=== PATIENT | female | born 1960 ===

== ENCOUNTER 2024-04-19 13:47 | Emergency (ER) | payer OTHER, SELFPAY ==
[2024-04-19 13:49] VITALS: BP 183/86; PULSE 59; RESP 16; TEMP 36.4; O2SAT 100; BMI 28.3
--- NOTE | 2024-04-19 14:30 | PC.NURSE ---
Pt states she woke up with right sided vision change. Pt states she went to bed at 0000 w/ no vision issues. Pt states it looks like she is looking through a cloud. Pt states she might see halos but refers back again to stating her vision feels like she is looking through a cloud. Denies pain, no redness. Pupils equal, round, reactive 3mm. Pt denies blurry vision; denies seeing shadows.
--- NOTE | 2024-04-19 14:53 | ED_ITS ---
HPI - Eye Problem <Molly Funez PA-C - Last Filed: 04/19/24 17:35> General Chief complaint: Eye Problems Stated complaint: WIC; Can't see through R Eye Time Seen by Provider: 04/19/24 14:53 Source: patient Mode of arrival: Ambulatory History of Present Illness HPI Narrative: Ms. Meier is a pleasant 63 year old female with a past medical history of refractive lens exchange in May 2023, hypertension, chronic back pain who presents to the emergency department for right eye cloudy vision since 9:00 a.m. this morning. Patient states she felt normal when she went to bed however when she woke up at 9:00 a.m. she noticed her right eye vision was very ?cloudy?. She describes this as white/nuñez cloud disrupting entire right eye vision making it blurred. There are no spots, specks, flashing lights, or halos. There was no blackness. She is still able to make out figures, number fingers being held the, but is not able to see details. Both of her eyes feel slightly dry and she feels like her allergies are acting up but otherwise she has no symptoms. No pain, no trauma, no headache, no dizziness, no balance issues, no weakness, no numbness or tingling, no flu-like symptoms fevers or chills. States that she had her refractive lens exchange done at [address] in [place] but she does not currently have an eye doctor. Medications: Amlodipine, gabapentin, Celebrex Related Data Allergies Allergy/AdvReac Type Severity Reaction Status Date / Time Sulfa (Sulfonamide AdvReac Hives Verified 04/19/24 13:49 Antibiotics) Review of Systems <Molly Funez PA-C - Last Filed: 04/19/24 17:35> Review of Systems ROS Unobtainable: All systems reviewed & are unremarkable except as noted in HPI and below Patient History <Molly Funez PA-C - Last Filed: 04/19/24 17:35> Social History Smoking Status: Never smoker Smoking Status: Never smoker Exam <Molly Funez PA-C - Last Filed: 04/19/24 17:35> Narrative Exam Narrative: GENERAL: 63 year old patient appears stated age. Well-developed patient, in no acute distress. HEAD: Atraumatic. Normocephalic. EYES: PERRL, 3mm. Extraocular motions intact. No scleral icterus. No injection or drainage. Visual jaramillo by confrontation intact. Gross vision intact. No fluorescein uptake bilaterally, negative Julito sign bilaterally. Right IOP 13, left IOP 14. NECK: Trachea midline. Cervical ROM intact. CARDIOVASCULAR: Regular rate and rhythm. RESPIRATORY: ?Nonlabored respirations. ?Speaking in clear, full sentences. ?Clear to auscultation. Breath sounds equal bilaterally. No wheezes, rales, or rhonchi. ? GASTROINTESTINAL: Abdomen soft, non-tender, nondistended. EXTREMITIES: No edema or joint tenderness. NEURO: AOx3. ?Clear speech. ?Moves all 4 extremities appropriately. No facial asymmetry, sensation intact to light touch throughout the face and extremities bilaterally. Negative pronator drift, heel-alonzo, rapid alternating movements, [id number]. Steady gait. Bilateral upper and lower strength intact. SKIN: No rash or erythema of visible areas Initial Vital Signs Initial Vital Signs: Vital Signs Temperature 97.6 F 04/19/24 13:49 Pulse Rate 59 L 04/19/24 13:49 Respiratory Rate 16 04/19/24 13:49 Blood Pressure 183/86 H 04/19/24 13:49 Pulse Oximetry 100 04/19/24 13:49 Oxygen Delivery Method Room Air 04/19/24 13:49 <Mel oCleman DO - Last Filed: 04/19/24 18:00> Initial Vital Signs Initial Vital Signs: Vital Signs Temperature 97.6 F 04/19/24 13:49 Pulse Rate 59 L 04/19/24 13:49 Respiratory Rate 16 04/19/24 13:49 Blood Pressure 183/86 H 04/19/24 13:49 Pulse Oximetry 100 04/19/24 13:49 Oxygen Delivery Method Room Air 04/19/24 13:49 Course <Molly Funez PA-C - Last Filed: 04/19/24 17:35> Orders Ordered: Discontinued Medications Fluorescein Sodium (Fluorescein 1 Mg Strip) 1 mg EYE-RIGHT NOW ONE Stop: 04/19/24 15:22 Last Admin: 04/19/24 15:26 Dose: 1 mg Documented By: ROVERTO Proparacaine HCl (Proparacaine 0.5% Ophth Autumn) 1 drops EYE-BOTH NOW ONE Stop: 04/19/24 15:22 Last Admin: 04/19/24 15:26 Dose: 1 drop Documented By: ROVERTO Consultations Consultation #1: Discussed case with [facility] financial assistance specialist Dr. Be. At this time patient is appropriate for ED to ED transfer via private vehicle for further evaluation by Ophthalmology. He does not recommend any other testing or interventions at this time however he states that we can perform ocular ultrasound to rule out retinal change or vitreous hemorrhage, and to call back if there is any abnormalities on ultrasound. Time: 16:59 Vital Signs Vital signs: Vital Signs - 8 hr 04/19/24 13:49 04/19/24 17:07 04/19/24 17:33 Temperature 97.6 F Pulse Rate 59 L 59 L 68 Respiratory Rate 16 16 18 Blood Pressure 183/86 H 182/89 H 183/99 H Pulse Oximetry 100 97 98 Oxygen Delivery Method Room Air Room Air Room Air <Mel Coleman DO - Last Filed: 04/19/24 18:00> Orders Ordered: Discontinued Medications Fluorescein Sodium (Fluorescein 1 Mg Strip) 1 mg EYE-RIGHT NOW ONE Stop: 04/19/24 15:22 Last Admin: 04/19/24 15:26 Dose: 1 mg Documented By: ROVERTO Proparacaine HCl (Proparacaine 0.5% Ophth Autumn) 1 drops EYE-BOTH NOW ONE Stop: 04/19/24 15:22 Last Admin: 04/19/24 15:26 Dose: 1 drop Documented By: ROVERTO Vital Signs Vital signs: Vital Signs - 8 hr 04/19/24 13:49 04/19/24 17:07 04/19/24 17:33 Temperature 97.6 F Pulse Rate 59 L 59 L 68 Respiratory Rate 16 16 18 Blood Pressure 183/86 H 182/89 H 183/99 H Pulse Oximetry 100 97 98 Oxygen Delivery Method Room Air Room Air Room Air MDM - Eye Problem <Molly Funez PA-C - Last Filed: 04/19/24 17:35> MDM Narrative Medical decision making narrative: 63 year old female with a past medical history of refractive lens exchange in May 2023, hypertension, chronic back pain who presents to the emergency department for right eye cloudy vision since 9:00 a.m. this morning. Differential diagnosis includes but is not limited to conjunctivitis, dry eye syndrome, retinal detachment, retinal artery occlusion, corneal ulcer, corneal abrasion amaurosis fugax, open-angle glaucoma, vitreous hemorrhage, etc. On exam the patient is in no acute distress, nontoxic appearing. Vital signs reveal elevated BP in triage at 183/86, patient states that she takes amlodipine but takes it in the evenings. Pulse 59. Right eye visual acuity is 20/200, left 20/50, bilateral 20/40. With the right eye she describes cloudy/blurry vision across the entire visual field, with no spots specks flashing lights or dark spots, no current coming down over the vision, she is still able to make out shapes, number fingers. Her pupils are equal round and reactive, EOMs intact, there is no erythema or visual abnormality of the eye. She has no other focal neurologic deficits, and has no pain or trauma to the right eye. No fluorescein uptake, and normal intra-ocular pressures. Discussed case with the attending Dr. Coleman, we will consult Ophthalmology for further management. After discussion with financial assistance specialist Dr. Be at [facility] ophthalmology, we will proceed with bedside ultrasound and ED to ED transfer via private vehicle to [facility] Emergency Department so the patient can be evaluated by an financial assistance specialist. Bedside US shows no large retinal tear or obvious large hemorrhage. Patient verbalized understanding of all information and has a family member who was going to drive her directly to [facility] Emergency Department. Discussed risks and benefits of transfer. Patient verbalized understanding of all info rmation and is agreeable to the plan. She is stable for transfer via private vehicle at this time. <Mel Coleman, DO - Last Filed: 04/19/24 18:00> [facility] Narrative Medical decision making narrative: 63 year old female with a past medical history of refractive lens exchange in May 2023, hypertension, chronic back pain who presents to the emergency department for right eye cloudy vision since 9:00 a.m. this morning. Differential diagnosis includes but is not limited to conjunctivitis, dry eye s yndrome, retinal detachment, retinal artery occlusion, corneal ulcer, corneal abrasion amaurosis fugax, open-angle glaucoma, vitreous hemorrhage, etc. On exam the patient is in no acute distress, nontoxic appearing. Vital signs reveal elevated BP in triage at 183/86, patient states that she takes amlodipine but takes it in the evenings. Pulse 59. Right eye visual acuity is 20/200, left 20/50, bilateral 20/40. With the right eye she describes cloudy/blurry vision across the entire visual field, with no spots specks flashing lights or dark spots, no current coming down over the vision, she is still able to make out shapes, number fingers. Her pupils are equal round and reactive, EOMs intact, there is no erythema or visual abnormality of the eye. She has no other focal neurologic deficits, and has no pain or trauma to the right eye. No fluorescein uptake, and normal intra-ocular pressures. Discussed case with the attending Dr. Coleman, we will consult Ophthalmology for further management. Bedside US shows no large retinal tear or obvious large hemorrhage. Discharge Plan Departure Patient Disposition: [facility] Clinical Impression: Blurred vision, right eye Activity Restrictions/Additional Instructions: Dear Ms. Meier, Today you were evaluated for cloudy vision of your right eye. We consulted the financial assistance specialist Dr. Be at [facility], and we would like you to proceed immediately to [facility] Emergency Department in [place] for further evaluation by the eye doctor. It is very important that you do not drive yourself and instead you have a family member drive you there. Please provide the emergency department core maker helper desk with all of the your paperwork. If you have any concerns or sudden worsening of condition on the drive there, please stop and call 911. After you were discharged from the hospital in [place], please make sure to follow up with her primary care doctor and financial assistance specialist for further management. Thank you for letting me participate in your care, Molly Funez PA-C Referrals: Anastasia,Doctor[facility] [Primary Care Provider] - ED Sign-out <Mel Coleman, - Last Filed: 04/19/24 18:00> Cosign ED Attending Consuelo Attestation: I was immediately available in the department for consultation. Patient was also seen by myself. Patient's workup was reviewed, fluorescein dye was reviewed with images taken by the PA, visual acuity and pressures. I performed bedside US no obvious retinal detachment or large bleed appreciated. Patient case was reviewed with Ophthalmology at [facility] and plan for ED to ED transfer for further evaluation as patient has had significant decreased vision change which is painless does have a history of eye surgery in the past.
[2024-04-19] MEDS: FLUORESCEIN 1 MG STRIP EYE-RIGHT (15:26)
[2024-04-19] MEDS: PROPARACAINE 0.5% OPHTH SOL 1 DROPS EYE-BOTH (15:26)
[2024-04-19 17:07] VITALS: BP 182/89; PULSE 59; RESP 16; O2SAT 97
[2024-04-19 17:33] VITALS: BP 183/99; PULSE 68; RESP 18; O2SAT 98
== END 2024-04-19 17:50 | disposition short-term general hospital (02) ==
PROVIDERS: Emergency Provider Physician Assistant
DX: H53.8 Other visual disturbances (principal)
CPT/HCPCS: 99282; 99283